=== PATIENT | female | born 1950 | race Caucasian/White ===

== ENCOUNTER 2018-01-15 07:36 | Day surgery (SDC) | payer MEDICARE, OTHER ==
[~2018-01-15] VITALS: Ht 152.4 cm; Wt 54.7 kg
[~2018-01-15 07:36] MED LIST: ASPI81CH PO; ASPI81EC PO; BETA1 PO; Beta Carot25000 UNIT PO; CALCIUM PO; CHLO25B PO; CHOL10002 PO; DOCU100 PO; ENOX30I SC; ESTRADIOL TOP; FLUT44OIA IH; Flonase 0.05% N16 GM; HYDR1TAB94 PO; IBUP800 PO; LOSA50 PO; MEDR2.5 PO; MULVITMINF PO; NAPR220 PO; OSTEO BI-FLEX PO; ROSE HIPS PO; SENN187 PO; TRIPLE FLEX CA1 EACH PO; VIT C PO; VITD PO
== END 2018-01-15 10:01 | disposition home or self-care (01) ==
LOC: ORSCSDS 07:36
PROVIDERS: Internal Medicine Gastroenterology
PROC: 0DBH8ZX Excision of Cecum, Via Natural or Artificial Opening Endoscopic, Diagnostic (ICD-10-PCS; principal; 2018-01-15 09:00)
PROC: 0DBN8ZX Excision of Sigmoid Colon, Via Natural or Artificial Opening Endoscopic, Diagnostic (ICD-10-PCS; principal; 2018-01-15 09:00)
PROC: 0DBK8ZX Excision of Ascending Colon, Via Natural or Artificial Opening Endoscopic, Diagnostic (ICD-10-PCS; principal; 2018-01-15 09:00)
PROC: 0DBL8ZX Excision of Transverse Colon, Via Natural or Artificial Opening Endoscopic, Diagnostic (ICD-10-PCS; principal; 2018-01-15 09:00)
DX: Z12.11 Encounter for screening for malignant neoplasm of colon (principal); D12.0 Benign neoplasm of cecum; D12.2 Benign neoplasm of ascending colon; D12.3 Benign neoplasm of transverse colon; D12.5 Benign neoplasm of sigmoid colon; K57.30 Diverticulosis of large intestine without perforation or abscess without bleeding; Z86.010 Personal history of colon polyps; Z79.82 Long term (current) use of aspirin; Z79.899 Other long term (current) drug therapy
CPT/HCPCS: 88305; J0330; J1980; J2405; J7120

== ENCOUNTER 2020-09-23 07:46 | Day surgery (SDC) | payer MEDICARE, OTHER ==
[~2020-09-23] VITALS: Ht 152.4 cm; Wt 55.3 kg
[~2020-09-23 07:46] MED LIST changes: +ALEN70 PO
[2020-09-23] MEDS ORDERED: ACET325 PO (08:38)
[2020-09-23] MEDS ORDERED: Vitamin D2000 UNIT PO (08:38)
[2020-09-23] MEDS ORDERED: Ocuvite Preser1 EACH (08:38)
[2020-09-23] MEDS ORDERED: CALCIUM CIT 311 EACH (08:39)
== END 2020-09-23 10:42 | disposition home or self-care (01) ==
LOC: ORSCSDS 07:46
PROVIDERS: Podiatrist Foot & Ankle Surgery
PROC: 01BG0ZZ Excision of Tibial Nerve, Open Approach (ICD-10-PCS; principal; 2020-09-23 09:00)
DX: G57.61 Lesion of plantar nerve, right lower limb (principal); I10 Essential (primary) hypertension; Z79.899 Other long term (current) drug therapy; Z79.82 Long term (current) use of aspirin
CPT/HCPCS: J0171; J1100; J1885; J2405; J2704; J3010; J3370; J7120

== ENCOUNTER 2022-02-07 08:54 | Day surgery (SDC) | payer MEDICARE, OTHER ==
[~2022-02-07] VITALS: Ht 152.4 cm; Wt 55.0 kg
[~2022-02-07 08:54] MED LIST changes: +ACET325 PO; +CALCIUM CIT 311 EACH; +CLINDAGEL75 ML; +DOK100 M2 PO; +DOXYCYCLINE HY100 M1 PO; +Ocuvite Preser1 EACH; +PROLIA60 MG/1 ML SC; +Vitamin D2000 UNIT PO; +Voltaren100 GM
== END 2022-02-07 10:58 | disposition home or self-care (01) ==
LOC: ORSCSDS 08:54
PROVIDERS: Internal Medicine Gastroenterology
PROC: 0DBK8ZX Excision of Ascending Colon, Via Natural or Artificial Opening Endoscopic, Diagnostic (ICD-10-PCS; principal; 2022-02-07 10:15)
DX: Z12.11 Encounter for screening for malignant neoplasm of colon (principal); D12.2 Benign neoplasm of ascending colon; Z86.010 Personal history of colon polyps; K57.30 Diverticulosis of large intestine without perforation or abscess without bleeding; I10 Essential (primary) hypertension; Z79.82 Long term (current) use of aspirin; Z79.899 Other long term (current) drug therapy
CPT/HCPCS: 88305; J2704; J7120

== ENCOUNTER → 2022-06-06 | Outpatient (CLI) | payer MEDICARE, OTHER | END | disposition home or self-care (01) | LOC: LAB SHORT 15:07 → PLD 15:07 | DX: L82.1 Other seborrheic keratosis (principal) | CPT/HCPCS: 88305 ==

== ENCOUNTER 2024-12-18 09:31 | Day surgery (SDC) | payer MEDICARE, OTHER ==
[~2024-12-18] VITALS: Ht 152.4 cm; Wt 55.4 kg
[~2024-12-18 09:31] MED LIST changes: +Lactated Ringer's 1,000 ML IV ONE; +propofoL 50 ML IV ONE
[2024-12-18] MEDS ORDERED: Lactated Ringer's 1,000 ML IV ONE (10:19)
[2024-12-18 12:12] VITALS: BP 120/83
== END 2024-12-18 12:12 | disposition home or self-care (01) ==
LOC: ORSCSDS 09:31
DX: R10.13 Epigastric pain (principal); R10.31 Right lower quadrant pain; R14.0 Abdominal distension (gaseous); Z86.0101 Personal history of adenomatous and serrated colon polyps
CPT/HCPCS: 88305; 88342; J2704; J7120